=== PATIENT | female | born 1960 | race Caucasian/White ===

== ENCOUNTER 2018-06-21 10:06 | Emergency (ER) | payer MEDICAID, SELFPAY ==
[2018-06-21] VITALS (7 sets, daily range): BP systolic 150–197; BP diastolic 101–143; PULSE 63–110; RESP 10–21; TEMP 36.6; O2SAT 96–100; BMI 20.9
[2018-06-21] MEDS: Ondansetron 4 MG/2 ML Vial IV (10:52)
[2018-06-21] MEDS: Morphine 4 MG/ML Syringe IV (10:52)
--- NOTE | 2018-06-21 11:03 | NURSING ---
DR TAPIA PAGEVicki
--- NOTE | 2018-06-21 11:40 | NURSING ---
PATIENT WILL BE WAITING ON DR ESPARZA
[2018-06-21] MEDS: HYDROmorphone 1 MG/ML Syringe IV ×2 (12:47→15:51)
--- NOTE | 2018-06-21 15:40 | ED.VISSUMM ---
- ER Visit Summary Date of Service: 06/21/18 Chief Complaint: [Injury right wrist] History of Present Illness: The patient is a 58 F [presents the emergency department complaint of injury to the right wrist that occurred about an hour ago. Patient states that she was cleaning up around the community dumpster when she slipped on the wet grass and she try to catch herself on an outstretched right arm. Patient is right-hand dominant. She denies striking her head or loss of consciousness. She denies any other injuries.] Physical Examination: [HEENT-PERRLA, EOMI. Cranial nerves II through XII grossly intact. TMs clear. Mucous membranes moist. No adenopathy. Cardiovascular-regular rate and rhythm without murmur or ectopy Lungs-clear to auscultation, chest wall stable without crepitus or subcu emphysema Abdomen-normoactive bowel sounds, soft, nontender, no rebound or rigidity, no peritoneal signs. Extremities-intact ?4, normal range of motion, normal pulses. Right wrist-patient has obvious deformity. Patient has decreased range of motion flexion extension of the digit secondary to pain and swelling as well as deformity. She has normal sensation and normal cap refill. No lacerations noted. Patient has no pain at the elbow. Test Results: [X-rays of the right wrist showed a displaced distal radius fracture] Emergency Department Course and Treatment: [Case was discussed with Dr. Heard who was in surgery and asked that we either discuss case with 1 of the other orthopedic surgeons or have patient splinted and follow-up with his office. I discussed case with Dr. Mccormack who also was in surgery and therefore discussed case with Dr. Hopkins who also was in surgery but stated that he would come down and see the patient if she wanted to wait for several hours which the patient opted to do. Patient was consented for procedural sedation with propofol. I did give patient 100 mg of propofol with good sedation and reduction was performed by Dr. Hopkins in the department.] Treatment Plan: [Patient will follow up with Dr. Hopkins in 1 week. Patient will be given a prescription for [place] for pain and a sling.] Disposition: [Discharged home in stable condition] Impression: [Right distal radius fracture] This note was generated with [employer] software. It may contain incorrect words, spelling, and punctuation that were not noted in review of the chart prior to signing ED Disposition - Plan for ED Patient: Chief Complaint: Upper Extremity Injury Referrals: Amparo Viveros DO [Primary Care Provider] -
--- NOTE | 2018-06-21 15:43 | ED.DEP ---
ED Disposition - Plan for ED Patient: Chief Complaint: Upper Extremity Injury Instructions: ED Fx Colles Wrist Redu Requ Prescriptions: Hydrocodone/Acetaminophen [[place] 5-325 Tablet] 1 - 2 ea PO 4X/DAY PRN PRN 5 Days #20 tab PRN Reason: Pain Referrals: Amparo Viveros DO [Primary Care Provider] - Marcel Hopkins MD [STAFF PHYSICIAN] - 1 Week
[2018-06-21] MEDS: Propofol 200 MG/20 ML Vial 100 MG IV BOLUS (15:50)
--- NOTE | 2018-06-21 16:08 | PCM.CONS.GEN ---
Reason for Consult Date of Consultation: 06/21/18 Reason for Consultation: Right wrist fracture, requested by Dr. Reilly History of Present Illness: The patient is a 58 year old F with history of hypertension trip today falling on her right hand. Patient had a deformity of the right wrist with swelling. She presents to the emergency department with right wrist pain deformity and swelling. She denies any associated numbness and tingling. No previous treatment for osteoporosis. Patient does not take calcium and vitamin D on a regular basis. Pain is worse with motion better with immobilization. 10 out of 10 pain with motion. Currently 7 out of 10. She is right-hand dominant. He remains active and vibrant for her age. Past Medical History Allergies No Known Allergies Allergy (Verified 06/21/18 10:08) Home Medications: Ambulatory Orders Medication Instructions Recorded Amlodipine [Norvasc] 5 mg PO DAILY 06/21/18 Hydrocodone/Acetaminophen [[place] 1 - 2 ea PO 4X/DAY PRN PRN 5 Days 06/21/18 5-325 Tablet] #20 tab Surgical History: no surgical history Psychiatric History: No pertinent psych hx [employer] History: No pertinent [employer] history Lives: Spouse/ Significant Other Smoking Status: Current every day smoker Tobacco Use: Cigarettes Alcohol: Occasional Drugs: None Review of Systems Constitutional: Denies: Chills, Fever, Weight Change HEENT: Denies: Head Aches, Sinus Congestion, Sinus Drainage Cardiovascular: Denies: Chest Pain, Palpitations Respiratory: Denies: Cough, Shortness of breath at rest, Sputum production Gastrointestinal: Denies: Abdominal Pain, Nausea, Vomiting Genitourinary: Denies: Dysuria Musculoskeletal: Reports: - - See HPI Skin: Denies: Rash, Wounds Neurological: Denies: Numbness, Tingling, Focal weakness Psychiatric: Denies: Anxiety, Depression, Homicidal Ideations, Suicidal Ideations Hematologic/ Lymphatic: Denies: Easy Bruising, Easy Bleeding Objective: Left wrist radiographs show comminuted extra articular distal radius fracture with apex volar angulation. Ulna is intact with a small cortical area with possible ulnar styloid avulsion. - Physical Exam General: Alert, Oriented x3, Cooperative HEENT: Atraumatic Neck: No JVD Lungs: - - Nonlabored breathing Cardiovascular: - - Regular pulse rate Abdomen: Non-Distended Extremities: - - Right upper extremity: Gross deformities noted. Skin is intact. Bruising and ecchymosis as well as swelling. Patient gives a thumbs up, okay sign and cross his fingers. Sensations intact light touch R/M/U. 2+ radial pulse. Skin: - - Skin is intact, ecchymosis at the injury site Musculoskeletal: Tenderness - At the right wrist Neurological: Cranial nerves II-XII grossly intact Psych/Mental Status: Normal Affect Vital Signs Temp Pulse Resp BP Pulse Ox 97.9 F 78 21 H 174/143 H 96 06/21/18 10:07 06/21/18 15:55 06/21/18 15:55 06/21/18 15:55 06/21/18 15:55 Oxygen Flow Rate (L/min) 2 Oxygen Delivery Method [1 ( Room Air Initial Baseline)] Oxygen Delivery Method Room Air Weight: 130 lb Body Mass Index (BMI) 20.9 Assessment/Plan Right displaced distal radius fracture extra articular. Treatment options and natural history of the disease process were discussed the patient in the emergency department. At this time I recommended a closed reduction in the emergency department and being placed in a splint. We also discussed operative intervention. Did not recommend patient leave the wrist in its current position. She is otherwise healthy and active. Risks and benefits of closed reduction were discussed the patient including skin tears, failure reduction. We also discussed post reduction plan including weekly follow-up visits for at least 3 weeks. Eventual switch to a cast or continued in the splint if comfortable. Patient will continue to ice and elevate aggressively. Tylenol Motrin for pain. She is also been given some pain medications in case Tylenol and Motrin are not appropriate. I did discuss cast care with her . They can loosen the Galileo bandage however I do not want them to loosen the white Bev wrap. Patient will follow-up in the office in 1 week. Procedure: After conscious sedation was administered by the emergency department. Fracture deformity forces were re-created and traction was pulled on the wrist. Were able to reduce the fracture. Live x-ray was used to verify fracture reduction. Once this was verified and we are happy with our fracture reduction in AP splint was placed using plaster. The splint was well molded and three-point mold. Final x-rays were taken with the mold cured into place. Fingers remained pink with brisk cap refill. [facility] Office:
== END 2018-06-21 17:00 | disposition home or self-care (01) ==
PROVIDERS: Emergency Provider Emergency Medicine; Family Provider Internal Medicine; PCP Internal Medicine
DX: S52.552A Other extraarticular fracture of lower end of left radius, initial encounter for closed fracture (principal); W01.0XXA Fall on same level from slipping, tripping and stumbling without subsequent striking against object, initial encounter; Y93.9 Activity, unspecified; Y92.9 Unspecified place or not applicable; I10 Essential (primary) hypertension; F17.210 Nicotine dependence, cigarettes, uncomplicated
CPT/HCPCS: 25605; 73100; 73110; 76000; 96374; 96375; 96376; 99285; J7030; A4216; J2405

== ENCOUNTER 2018-09-06 15:30 | Outpatient (RCR) | payer MEDICAID, SELFPAY ==
--- NOTE | 2018-08-14 17:54 | HP.OTEVAL_ITS ---
Patient's Visit Information ARIN HORNER is a 58 year old F, referred to Occupational Therapy by Marcel Hopkins MD, with a diagnosis of extrartic fx of low end of radius 7th d. 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 Noted fell while cleaning, tried to catch self, but landed on wrist. She is self- employed. She was casted for 3 weeks and splint for 4 weeks. - Pain Right Wrist 2 Pain Intensity Range: 0, 5 - Objective Objective/Observation: Minimal puffiness; increased ulnar bowing from break, tenderness to dorsal pocket at base of 3rd MCp. - ROM Forearm: supination R 0-67, L WFL Wrist: flexion R 0-46 , L 0-72; Ext R 0-27, L 0-60 MP: WFL PIP: WFL DIP: WFL ROM Comments: Radial deviation R 0-10, L 0-25; ulnar deviation R 0-9, L 0-24. Able to make full composite fist. - Strength Histologist: R 38 , L90 Lateral Pinch: R 10, L 18 Tripod Pinch: R 6, L 11 Tip-to-Tip Pinch: R 7, L 14 - In-Hand Manipulation Finger to Palm Translation: Mild - Right, Normal - Left Palm to Finger Translation: Mild - Right, Normal - Left - DASH-Disabilities of Arm, Shoulder& Hand DASH Sum: 79 - Hand/Wrist Evaluation Total Score of Pain & Functional Sections: 43 - Goals Goal:: Arin to increase R shading painter strength by 20-25 lbs to promote increased shading painter strength and ROM needed to complete ADL/IADL sby d/c. Goal:: Arin to increase wrist flexion and extension by 10-20 degrees to promote increased ROM needed for self care and IADLs to promote returning to PLOF by d/c. Goal:: Arin to no have more than 1/10 pain in R wrist during ROM tasks 4/5 trials 80% of the time by d/c. Goal:: Arin to be (I) to complete joint protection techniques and body mechanics to promote alignement and decreased risk of further injury by d/c. Goal:: Arin to to mod I to complete HEP for ROM and strengthening purposes 4/5 trials 80% of the time by d/c. - Rehabilitation General Assessment: Arin arrived for OT evaluation on this date of 08/13/18. 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 Decrease ROM and strength noted in R affected hand as completed to L non-dominant hand. OT to work on increasing ROM, strength, and endurance to promote body mechanics and returning to PLOF for all ADL/IADls by d/c. Rehabilitation Potential: Excellent - Anticipated Interventions Anticipated Interventions: A/AAROM/PROM, Strengthening, Edema Control, Massage, Modalities, Orthoses, Joint Protection/Energy Conservation, Ergonomic Education, Fine Motor Coord/Luis, ADL Training, Caregiver Training, Home Program - Visit Plan Frequency: 2-3x /Week Duration: 4-6 Weeks General Plan: Arin to complete OT to promote increased ROM, strength, FMC, and increased ability to complete ADL/IADls at PLOF. TEXT: Thank you for the opportunity to evaluate your patient. For Medicare and Medicare HMO plans, please review the plan of care and approve it. It will need to be FAXED BACK to us at [phone] for Medicare purposes. Please let me know if there are questions or concerns regarding this plan of care. Physician Signature: Date:
--- NOTE | 2018-10-19 17:28 | HP.OT.NRP ---
HP - Discharge Summary - Patient Information MARLEE HORNER was seen in my office for initial evaluation on 08/14/18. The following Plan of Care was established for this patient: Initial Frequency: 2-3x /Week Initial Duration: 4-6 Weeks Plan: continue POC. - Anticipated Interventions Anticipated Interventions: A/AAROM/PROM, Strengthening, Edema Control, Massage, Modalities, Orthoses, Joint Protection/Energy Conservation, Ergonomic Education, Fine Motor Coord/Luis, ADL Training, Caregiver Training, Home Program This patient was last seen in our office 09/06/18. Pertinent comments regarding their Occupational therapy will appear below: Last seen 09/06/18. She was making progress but also seeing Dr. Hopkins for further follow-up on shoulder. She had canceled last four sessions due to car troubles and never rescheduled. She will be d/c'd at this time. At this point I will be discontinuing this patient from occupational therapy. I would be happy to see this patient again in the future if found appropriate by the physician. Thank you! Sharita Zabala
== END 2018-09-06 19:00 | disposition home or self-care (01) ==
LOC: OT 15:30
PROVIDERS: Family Provider Internal Medicine; PCP Internal Medicine; Referring Provider Specialist; Visit Provider Specialist
DX: S52.551D Other extraarticular fracture of lower end of right radius, subsequent encounter for closed fracture with routine healing (principal)
CPT/HCPCS: 97110; 97140; 97166; 97530

== ENCOUNTER 2019-01-15 10:15 | Day surgery (SDC) | payer MEDICAID, SELFPAY ==
--- NOTE | 2019-01-09 09:11 | EKG12_ITS ---
Test Reason : PRE OP Blood Pressure : / mmHG Vent. Rate : 071 BPM Atrial Rate : 071 BPM P-R Int : 126 ms QRS Dur : 086 ms QT Int : 406 ms P-R-T Axes : 064 094 053 degrees QTc Int : 441 ms Normal sinus rhythm Rightward axis Borderline ECG Confirmed by ELLIE MCKEON, CIRA ([id number]), staff editor LLOYD COMER ([id number]) on 01/10/2019 8:59:21 AM Referred By: Stuart Heard Confirmed By:CIRA ARGUETA MD
[2019-01-09 09:29] LABS: Hematocrit 43.2 % (37-47); Mean Corp Hgb Conc 32.4 g/gl (32-36); Mean Corpuscular Hgb 29.4 pg (27.0-32.0); Mean Corpuscular Volume 90.8 fL (81-99); Mean Platelet Vol. 9.8 fl (6.2-12.0); Platelet Count 401 K/mm3 (150-450); RBC Distribution Width CV 12.9 % (11.6-14.6); RBC Distribution Width SD 42.6 fl (35.1-43.9); Red Blood Count 4.76 M/mm3 (4.2-5.4); White Blood Count 9.5 K/mm3 (4.4-11.0)
[2019-01-09 09:30] LABS: Scan Indicated on CBC? Y/N NO
[2019-01-09 09:57] LABS: Anion Gap 4 (5-15); BUN 16 mg/dL (7-18); BUN/Creat Ratio 21.8 RATIO (10-20); Calcium,Total 8.8 mg/dL (8.5-10.1); Chloride 107 mmol/L (98-107); Creatinine, Serum 0.74 mg/dL (0.55-1.02); EST Glomerular Filtration Rate 86 mL/min (>60); Est Glom Filt Rate - Afr Amer 105 mL/min (>60); Glucose 101 mg/dL (74-106); Potassium 3.7 mmol/L (3.5-5.1); Sodium Level 138 mmol/L (136-145)
--- NOTE | 2019-01-09 15:53 | HP.PCM_ITS ---
History and Physical DATE OF SURGERY: 01/15/2019 SCHEDULED PROCEDURE: right shoulder arthroscopy with subacromial decompression, distal clavicle excision, rotator cuff repair and debridement of labral tissue HISTORY OF PRESENT ILLNESS: This is a 58-year-old female who has been having ongoing pain in her right dominant shoulder for several months. Patient was initially seen in August 2018. Patient fell off a ladder in May when she broke her wrist. Patient states she began having shoulder pain after the fall. Patient has been through formal physical therapy as well as previous corticosteroid injection into the right shoulder. Patient had MRI of the right shoulder which did reveal partial thickness tearing. There is also a SLAP lesion noted. Patient states she is continued to have pain and weakness with the right shoulder. She has difficult time with activities of daily living that require overhead use. She denies numbness and tingling. Patient has a medical history pertinent for hypertension. Patient's blood pressure was elevated today but states she had to leave town urgently due to family member and surgery. She forgot her blood pressure medication over the past 3 days. She is just returning into town. She denies any chest pain, shortness of breath, fevers chills, recent infections. She does have a follow-up with her primary care physician this week. After failing conservative measures and discussing treatment options with Dr. Stuart Heard, the patient does wish to proceed with a right shoulder arthroscopy with subacromial decompression, distal clavicle excision, rotator cuff repair, and debridement of labral tissue. REVIEW OF SYSTEMS: ROS: Const: Denies change in appetite, fever and weight change. CV: Denies chest pain, heart murmur and irregular heartbeat. Resp: Reports cough, but denies pneumonia, shortness of breath, tuberculosis and wheezing. GI: Denies constipation, diarrhea, heartburn, nausea, rectal itching, bloody stools and vomiting. : Denies incontinence. Musculo: Denies leg swelling, pain, trouble walking and weakness. Skin: Reports tattoo, but denies Raynaud's and history of shingles. Neuro: Denies ambulatory dysfunction, dizziness, numbness/tingling and tremor. Psych: Reports anxiety and stress, but denies insomnia. Gabriel/Lymph: Denies anemia, bleeding/bruising tendency and past transfusion. Reviewed and updated. PAST MEDICAL HISTORY: Advance Care Plan: No Advance Directives Effective Date: 06/30/2018 PMH: Medical Problems: High Blood Pressure Accidents: RT Wrist FX - (06/21/2018) FALL Surgical Hx: Tubal Ligation - (1997) JOSE @ [facility] - (1989) Anesthesia Complications: None Assistive Devices: Glasses Reviewed and updated. SOCIAL HISTORY: SH: Marital: .Occupation: Not Currently Working.Work Status: Not Working Currently.Hand Dominance: Right-handed. Personal Habits: Cigarette Use: Heavy tobacco smoker (more than 10 cigarettes/day).Smokeless Tobacco: Never Used Smokeless Tobacco.Alcohol: Denies use.Drug Use: Denies Use.Enjoy Exercising: Never Exercises. Reviewed and updated. VITALS: Ht: 66 Wt: 134lb Wt k.782 BMI: 21.6 BP: 150/100 Pulse: 95 Resp: 18 T: 98.1 T: 36.7C ALLERGIES: No Known Drug Allergy MEDICATIONS: Amlodipine Besylate 5 mg take 1 tablet by mouth once daily, Meloxicam 15 mg 1 by mouth every day, Oxycodone HCL 5 mg 1-2 tab by mouth every 6 hours PRE-OP EXAM: General appearance:NORMAL Other: Eyes: Conjunctivae and lids: NORMAL Pupils: ERR Ears, Nose, Mouth, and Throat: NORMAL Other: Inspection of lips, teeth and gums: NORMAL Other: Neck: Examination of neck: no masses noted. Respiratory: Assessment of respiratory effort: NORMAL Other: Auscultation of lungs: clear to auscultation no wheezes, rhonchi or rales. Cardiovascular: Auscultation of heart: regular rate and rhythm, no murmurs, gallops or rubs. Gastrointestinal: Exam of abdomen: soft, nontender, nondistended bowel sounds present. PHYSICAL EXAMINATION: No palpable or visible deformity. Right shoulder is cool to touch without erythema or signs of infection. No atrophy appreciated. Patient has tenderness to palpation over the lateral right shoulder and acromioclavicular joint. Patient has limited range of motion right shoulder secondary to pain, forward elevation approximately 150 with pain.. Increased pain with internal/external rotation. Resisted range of motion: 4+/5 supraspinatus strength on the right, external rotation 4+/5. Sensation intact to light touch. Neurovascularly intact. IMAGING STUDIES: MRI of the right shoulder did reveal partial thickness tear of the rotator cuff with labral tear. Also reveals mild degenerative changes of the acromioclavicular joint. IMPRESSION: 1. Right shoulder pain with rotator cuff tear and acromioclavicular osteoarthritis 2. Hypertension PLAN: Dr. Stuart Heard did discuss and review with the patient all treatment options including surgical versus nonsurgical options. Patient does wish to proceed with the above-stated procedure. Potential risks, benefits, and complications of the procedure were discussed in detail including but not limited to , infection, nerve and blood vessel damage, persistent pain, numbness, tingling, paresthesias, blood clot, pulmonary embolism, and requirement for possible further surgery. The patient expressed full understanding and has no further questions for the doctor. Patient does agree to proceed with the above-stated procedure and has signed the surgery consent form. This dictation was created using voice recognition software. Phonetic and/or grammatical errors may exist.. ___ I have re-examined the patient. There are no clinical changes since date of exam. ___ See progress notes for changes. ___ Dictated on admission Date: Time: Signature:
[2019-01-15 10:35] VITALS: BP 117/83; PULSE 78; RESP 16; TEMP 36.7; O2SAT 100; BMI 21.4
[2019-01-15] MEDS: Cefazolin 2 GM in 0.9% Normal Saline 100 ML IV (12:54)
[2019-01-15] MEDS: Bupiv/Epi 0.5% Mpf 30 ML Vial (13:19)
--- NOTE | 2019-01-15 13:45 | PCM.OPRPT ---
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 Surgery/Procedure Performed:: Arthroscopic subacromial decompression, Christal procedure, intra-articular debridement ad setter: Alvaro Gorman Type of Anesthesia:: General/Regional Anesthesiologist: Khang Cabrera Description of Procedure: Primary Surgeon/Physician: Stuart Heard ad setter: Alvaro Ji PA-C ad setter: Pre-Operative Diagnosis: SAIS, AC arthrosis right shoulder Post-Operative Diagnosis: 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 Their [right ] shoulder was marked with surgical marker. Preoperative antibiotics were administered. The patient was then taken to the operating suite in a stable condition. After adequate anesthesia was obtained and it was secured there placed in standard beachchair position. All bony prominences were well-padded her head was secured in a beachchair positioner. The arm was then prepped and draped in the usual sterile fashion. Surgical timeout was performed surgery was commenced. Standard posterior viewing portal was made and 30? arthroscope was introduced into the glenohumeral joint. Anterior portal was made under direct visualization. Extensive debridement of the anterior capsule was performed evaluation of the shoulder itself was performed with the following findings: [The rotator cuff and biceps tendon were intact. 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 There was minor fraying of the glenoid labrum. The cartilage of the glenoid was intact. A shaver was utilized to debride the humeral head of delaminated cartilage. The shaver was used to debride any loose labral tissue. ]. The subacromial space was then entered and extensive debridement of the subacromial bursa was performed. The undersurface of the acromion was then debrided with a thermal wand. This did reveal a type II acromion. Subacromial decompression was then performed with a arthroscopic bur from anterolateral posteromedial create a type I acromion. When this was complete the wand was then utilized to debride the acromioclavicular joint. No significant osteoarthritic changes. A distal clavicle resection was then performed removing approximately 5 mm of distal clavicle not violating the superior acromioclavicular ligament. This was complete attention was then turned to the rotator cuff [The rotator cuff was intact. ]. The arthroscopy instruments and fluid were removed. The portals were then closed with interrupted suture of 4-0 nylon. A sterile dressing and sling were applied. My safety assistant, Mr. Gorman, provided an integral role in this procedure. He assisted in positioning the patient. He held the arthroscope and maneuvered the arm to provide optimal visualization during the diagnostic and operative arthroscopy. Subsequently he closed the arthroscopy wounds and applied the sterile dressing and sling. The patient was extubated and sent to PACU in stable and satisfactory condition.
--- NOTE | 2019-01-15 13:59 | OP.PCM_ITS ---
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 Surgery/Procedure Performed:: Arthroscopic subacromial decompression, Christal pr ocedure, intra-articular debridement manager mortgage: Alvaro Gorman Type of Anesthesia:: General/Regional Anesthesiologist: Khang Cabrera Description of Procedure: Primary Surgeon/Physician: Stuart Heard manager mortgage: Alvaro Ji PA-C manager mortgage: Pre-Operative Diagnosis: SAIS, AC arthrosis right shoulder Post-Operative Diagnosis: 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 Their [right ] shoulder was marked with surgical marker. Preoperative antibiotics were administered. The patient was then taken to the operating suite in a stable condition. After adequate anesthesia was obtained and it was secured there placed in standard beachchair position. All bony prominences were well- padded her head was secured in a beachchair positioner. The arm was then prepped and draped in the usual sterile fashion. Surgical timeout was performed surgery was commenced. Standard posterior viewing portal was made and 30? arthroscope was introduced into the glenohumeral joint. Anterior portal was made under direct visualization. Extensive debridement of the anterior capsule was performed evaluation of the shoulder itself was performed with the following findings: [The rotator cuff and biceps tendon were intact. 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 There was minor fraying of the glenoid labrum. The cartilage of the glenoid was intact. A shaver was utilized to debride the humeral head of delaminated cartilage. The shaver was used to debride any loose labral tissue. ]. The subacromial space was then entered and extensive debridement of the subacromial bursa was performed. The undersurface of the acromion was then debrided with a thermal wand. This did reveal a type II acromion. Subacromial decompression was then performed with a arthroscopic bur from anterolateral posteromedial create a type I acromion. When this was complete the wand was then utilized to debride the acromioclavicular joint. No significant osteoarthritic changes. A distal clavicle resection was then performed removing approximately 5 mm of distal clavicle not violating the superior acromioclavicular ligament. This was complete attention was then turned to the rotator cuff [The rotator cuff was intact. ]. The arthroscopy instruments and fluid were removed. The portals were then closed with interrupted suture of 4-0 nylon. A sterile dressing and sling were applied. My hospital nursing assistant, Mr. Gorman, provided an integral role in this procedure. He assisted in positioning the patient. He held the arthroscope and maneuvered the arm to provide optimal visualization during the diagnostic and operative arthroscopy. Subsequently he closed the arthroscopy wounds and applied the sterile dressing and sling. The patient was extubated and sent to PACU in stable and satisfactory condition.
[2019-01-15 14:01] VITALS: BP 117/83; BP 154/98; PULSE 91; RESP 16; TEMP 36.1; O2SAT 95
[2019-01-15 14:19] VITALS: BP 117/83; BP 146/93; PULSE 72; RESP 18; O2SAT 94
[2019-01-15 14:30] VITALS: BP 117/83; BP 152/92; PULSE 67; RESP 18; O2SAT 94
[2019-01-15 14:45] VITALS: BP 117/83; BP 154/91; PULSE 66; RESP 18; TEMP 36.1; O2SAT 94
[2019-01-15] MEDS: HYDROcodone Bitartrate/Apap 5/325 Tablet PO (14:55)
[2019-01-15 15:11] VITALS: BP 117/83
== END 2019-01-15 15:12 | disposition home or self-care (01) ==
LOC: SDC 10:15 → AC 10:16
PROVIDERS: Family Provider Internal Medicine; PCP Internal Medicine; Referring Provider Orthopaedic Surgery; Visit Provider Orthopaedic Surgery
PROC: (CPT 29826; principal; 2019-01-15 11:55)
DX: M19.011 Primary osteoarthritis, right shoulder (principal); M94.211 Chondromalacia, right shoulder; I10 Essential (primary) hypertension; F17.210 Nicotine dependence, cigarettes, uncomplicated; Z79.899 Other long term (current) drug therapy
CPT/HCPCS: 01630; 29823; 29824; 64415; 36415; 80048; 85027; 93005; J7120; J2405

== ENCOUNTER 2023-08-09 21:05 | Emergency (ER) | payer MEDICAID, SELFPAY ==
[2023-08-09 21:05] VITALS: BP 169/118; PULSE 95; RESP 15; TEMP 36.2; O2SAT 100; BMI 25.4
--- NOTE | 2023-08-09 21:33 | EX.ED.GENINJ ---
HPI History of Present Illness Chief Complaint: Bite Informant: patient and spouse/S.O. Narrative Narrative: 63-year-old female arriving to the emergency department chief complaint of cat bite to the right hand. Patient states that earlier today she was her cat on the right thenar eminence and wrist. She notes that it is progressively gotten swollen red and uncomfortable. She denies any fevers. She notes the cat is immunized. Her tetanus is up-to-date. She cleaned the wound with soap and water. No reported fevers PFSH PFSH Medical History (Updated 08/09/23 @ 21:[address] Fernando Schuler DO) Hypertension Home Medications amlodipine 5 mg tablet 5 mg PO DAILY BP 06/21/18 [History Last Taken 01/15/19 08:00] multivitamin with folic acid 400 mcg tablet (Thera) 1 tab PO DAILY 01/08/19 [History Last Taken Unknown] amoxicillin 875 mg-potassium clavulanate 125 mg tablet 875 mg (0.875 x 875-125 mg) PO Q12H #20 TABLETS 08/09/23 [Rx Last Taken Unknown] Allergy/AdvReac Type Severity Reaction Status Date / Time No Known Allergies Allergy Verified 08/09/23 21:09 Social History Smoking Status: Current every day smoker ROS ROS ED Constitutional Constitutional ED: Denies chills, fever(s) or weight loss Eyes Eyes: Denies change in vision or diplopia ENT ENT ED: Denies ear pain, rhinorrhea or sore throat Cardiovascular Cardiovascular: Denies chest pain, orthopnea, palpitations or racing heartbeat Respiratory/Chest Respiratory/Chest: Denies cough, dyspnea or orthopnea Gastrointestinal Gastrointestinal: Denies abdominal pain, diarrhea, nausea or vomiting Genitourinary Genitourinary ED: Denies dysuria, hematuria or urinary frequency Musculoskeletal Musculoskeletal: Reports other Details: See history of present illness ; Denies arthralgias or myalgias Integumentary Reports rash; Denies abscess Neurologic Neurologic: Denies headache(s) or weakness Psychiatric Psychiatric: Denies anxiety, depression, suicidal ideation or suicidal thoughts Endocrine Endocrinology: Denies polydipsia, polyphagia or polyuria Allergic/Immunologic Allergic/Immunologic ED: Denies mouth swelling, tongue swelling or urticaria EXAM Physical Exam Const Vital Signs: 08/09/23 21:05 Temperature 97.2 F L Temperature Source Temporal Pulse Rate 95 Respiratory Rate 15 Blood Pressure 169/118 H Blood Pressure Mean 135 Pulse Ox 100 Oxygen Delivery Method Room Air Positive well nourished and well developed General Appearance ED: well developed HEENT Reports normocephalic, head/scalp atraumatic and moist mucous membranes Eyes PERRL and EOMs intact bilaterally Neck no lymphadenopathy, supple and no JVD Resp normal respiratory effort and clear to auscultation bilaterally Cardio regular rate, regular rhythm and no murmurs GI normal to inspection, nondistended, normoactive bowel sounds and non-tender Palpation: soft Back/Spine no CVA tenderness and normal ROM Extremity Extremity Narrative: Right hand demonstrates erythema and swelling near the thumb MCP joint extending up onto the dorsum of the hand along the first metacarpal. This area is outlined in blue ink. There are multiple scratches/puncture wounds in this area. Patient is holding the thumb in a slightly flexed position she is able to extend it and flex it. There is no lymphangitic streaking. General Extremety ED: Negative for edema General Extremity: Negative for edema Neuro oriented x3 and CN's II-XII intact bilaterally Sensorium / Orientation: alert Motor Exam: strength 5/5 throughout Psych mental status grossly normal Mood & Affect: Negative for depressed or tearful Skin no rashes or lesions noted and no wounds MDM MDM MDM Narrative Medical decision making narrative: Patient will be started on Augmentin. Return instructions given. I did advise area most likely have some worsening of redness and swelling by tomorrow. She may return at any point if she is concerned about the progress of this illness. Discharge Plan Triage Chief Complaint: Bite ED Provider: Fernando Schuler Dx/Rx/DC Orders Clinical Impression: Cat bite of hand, Cellulitis of hand Instructions: ED Cat Bite Prescriptions: New amoxicillin-pot clavulanate [amoxicillin-pot clavulanate] 875-125 mg tablet 875 mg PO Q12H Qty: 20 0RF No Action amlodipine 5 MG tablet 5 mg PO DAILY Patient Comments: multivitamin with folic acid [Thera] 1 TABLET tablet 1 tab PO DAILY Primary Care Provider: Marizol Griggs Referrals: Marizol Griggs MD [Primary Care Provider] - As Needed Disposition Disposition: Home, Self Care
== END 2023-08-09 21:54 | disposition home or self-care (01) ==
LOC: ED 21:43
PROVIDERS: Emergency Provider Emergency Medicine; PCP Internal Medicine; Visit Provider Emergency Medicine
DX: S61.431A Puncture wound without foreign body of right hand, initial encounter (principal); L03.113 Cellulitis of right upper limb; W55.01XA Bitten by cat, initial encounter; I10 Essential (primary) hypertension; F17.200 Nicotine dependence, unspecified, uncomplicated
CPT/HCPCS: 99283

== ENCOUNTER → 2024-04-25 | Outpatient (CLI) | payer MEDICAID, SELFPAY ==
--- NOTE | 2024-04-25 12:16 | STRESSREP ---
Stress Test Report Exercise stress test. 64-year-old lady with a history of chest pain Stress protocol: Resting EKG demonstrates normal sinus rhythm with a rate of 89 bpm resting blood pressure is 136/84 mmHg. The patient exercised according to the regular Ruy protocol for a total duration of 4 minutes attaining a maximum heart rate of 122 bpm which was 77% of maximum predicted heart rate; the maximum workload was 7 metabolic equivalents. At rest there were no ST or T wave changes noted to suggest ischemia and at peak exercise upsloping ST changes only were noted which did not meet the criteria for ischemia. No clinical angina was noted the test was terminated due to the target heart rate being achieved/fatigue. The peak blood pressure was 170/92 mmHg. Rate-pressure product was 17,700. Conclusion: Stress test with no EKG criteria for ischemia at a moderate workload. No clinical angina noted
== END | disposition home or self-care (01) ==
LOC: CVS 09:57
PROVIDERS: PCP Internal Medicine; Referring Provider Internal Medicine; Visit Provider Internal Medicine
DX: R07.2 Precordial pain (principal); R06.09 Other forms of dyspnea
CPT/HCPCS: 93017

== ENCOUNTER 2024-04-29 22:35 | Emergency (ER) | payer MEDICAID, SELFPAY ==
[2024-04-29 22:35] VITALS: BP 192/132; PULSE 101; RESP 18; TEMP 35.9; O2SAT 98; BMI 24.8
--- NOTE | 2024-04-29 23:05 | EX.ED.DYSGE1 ---
HPI History of Present Illness Chief Complaint: Wound Informant: patient Narrative Narrative: Patient is a 64-year-old female with past medical history of hypertension. She is right-hand dominant. She states roughly an hour ago she was using her right hand to cut cucumbers with a mandolin. She states that she was performing this task when the next thing she knows she sliced the palm of her right hand. She states that she took the skin completely off. She states she was holding pressure and even wrapped the wound but there is been persistent bleeding and as she cannot get the bleeding under control comes in for evaluation. Patient denies any history of bleeding disorder or blood thinners. She states her tetanus status is up-to-date [facility] Medical History Hypertension Home Medications ?Medication ?Instructions ?Recorded ?Last Taken ?Type amlodipine 5 mg tablet 5 mg PO DAILY BP 06/21/18 01/15/19 08:00 History multivitamin with folic acid 400 1 tab PO DAILY 01/08/19 Unknown History mcg tablet (Thera) Allergy/AdvReac Type Severity Reaction Status Date / Time No Known Allergies Allergy Verified 04/29/24 22:37 Social History (Updated 04/29/24 @ 23:12 by Lidia Herrera) household members: spouse housing: house Smoking Status: Current every day smoker tobacco type: cigarettes ROS ROS ED Constitutional Constitutional ED: Denies chills or fever(s) ENT ENT ED: Denies sore throat Cardiovascular Cardiovascular: Denies chest pain Respiratory/Chest Respiratory/Chest: Denies cough or dyspnea Gastrointestinal Gastrointestinal: Denies abdominal pain, diarrhea, nausea or vomiting Genitourinary Genitourinary ED: Denies dysuria Musculoskeletal Musculoskeletal: Reports other Details: Positive right hand laceration ; Denies myalgias Integumentary Reports other Details: Positive right hand laceration ; Denies rash Neurologic Neurologic: Denies headache(s), paresthesias or weakness Hematologic/Lymphatic Hematologic/Lymphatic: Denies easy bleeding or easy bruising EXAM Physical Exam Const Vital Signs: 04/29/24 22:35 04/29/24 23:21 Temperature 96.7 F L 96.7 F L Temperature Source Temporal Pulse Rate 101 H 90 Respiratory Rate 18 16 Blood Pressure 192/132 H 168/81 H Blood Pressure Mean 152 110 Pulse Ox 98 98 Oxygen Delivery Method Room Air Positive well nourished and well developed General Appearance ED: well developed HEENT HEENT Narrative: Normocephalic atraumatic Eyes PERRL and EOMs intact bilaterally General Eye ED: Negative for scleral icterus Neck supple Resp normal respiratory effort and clear to auscultation bilaterally Cardio regular rate and regular rhythm Extremity Extremity Narrative: Right upper extremity is neurovascularly intact. Patient has a dermal layer deep skin avulsion that is roughly 2-1/2 cm x 1 cm in size with persistent ooze of venous blood along the thenar eminence of the right hand. No arterial injury noted. No ligamentous or tendon damage either. Neuro oriented x3, CN's II-XII intact bilaterally and no sensory deficits noted Sensorium / Orientation: alert Motor Exam: strength 5/5 throughout Psych mental status grossly normal Skin Skin Narrative: Skin avulsion/laceration to the right hand as documented above MDM MDM MDM Narrative Medical decision making narrative: Patient arrived to ER hypertensive but otherwise with stable vitals. She sustained a laceration/skin avulsion of her right hand. She does not have signs of ligamentous or tendon injury I have low concern for open fracture and she does not have findings to suggest arterial injury either so there is no need for imaging or workup. As there is no potential to suture the area as the skin has been completely avulsed the patient had Surgicel placed over top the wound after it was cleaned with chlorhexidine. It was then covered in a pressure wrap. Following this application the patient's bleeding was controlled. As I have low concern that she bled enough in the last hour to cause acute blood loss anemia there is no need for laboratory evaluation or concern for blood transfusion and patient is otherwise safe for discharge now that her bleeding has been stopped History & Record Review Discussion w/independent historian: Patient Discharge Plan Triage Chief Complaint: Wound ED Provider: Otoniel Greene Dx/Rx/DC Orders Clinical Impression: Avulsion of skin of right hand, Hypertension Instructions: Wound Care Dc, ED Skin Tear (Skin Avulsion) Prescriptions: No Action amlodipine 5 MG tablet 5 mg PO DAILY Patient Comments: multivitamin with folic acid [Thera] 1 TABLET tablet 1 tab PO DAILY Primary Care Provider: Marizol Griggs Referrals: Marizol Griggs MD [Primary Care Provider] - Activity Restrictions/Additional Instructions: Please leave the pressure wrap on for the next 10 to 12 hours as this coupled with the Surgicel that was placed directly over top of the wound will get the bleeding to stop. You may take the wrap off after the 10 to 12-hour timeframe and shower or wash your hands to remove the Surgicel. If bleeding returns you may use the Surgicel was given to you in the ER with another pressure wrap to try and stop/control bleeding. However if this is unsuccessful or you have any further concerns please return for repeat evaluation Print Language: Amharic Disposition Disposition: Home, Self Care Discharge Date/Time: 04/29/24 23:22
[2024-04-29 23:21] VITALS: BP 168/81; PULSE 90; RESP 16; TEMP 35.9; O2SAT 98
== END 2024-04-29 23:22 | disposition home or self-care (01) ==
PROVIDERS: Emergency Provider Emergency Medicine; PCP Internal Medicine; Visit Provider Emergency Medicine
DX: S61.411A Laceration without foreign body of right hand, initial encounter (principal); W26.8XXA Contact with other sharp object(s), not elsewhere classified, initial encounter; I10 Essential (primary) hypertension; F17.210 Nicotine dependence, cigarettes, uncomplicated
CPT/HCPCS: 99282